=== PATIENT | female | born 1975 ===

== ENCOUNTER → 2018-07-13 | Outpatient (CLI) | payer OTHER ==
--- NOTE | 2018-07-13 17:12 | CONS ---
Assessment/Plan Assessment/Plan Hospital Course (Demo Recall) This is a 42-year-old female with 3-month history of right knee and lower leg pain. On history and examination her pain is most likely coming from a distal hamstring strain as well as a gastrocnemius strain. The knee joint line itself does not appear to be tender and is ligamentously stable. X-rays show no significant abnormality. Plan: Continue anti-inflammatories prescribed by PCP Physical therapy Weight loss Low impact activities Ice Consultation Date/Type/Reason Admit Date/Time Date of Consultation: Jul 13, 2018 Reason for Consultation Right knee/leg pain Date/Time of Note DATE: 07/13/18 TIME: 17:03 Hx of Present Illness This is a 42-year-old female presents to clinic today complaining of right knee and leg pain since April 2018. This occurred one morning when she was putting on her shoes and she felt pain and a pop near her ankle and pain rating up to her knee. Her knee then felt stiff and began hurting along the posterior portion. Her pain has somewhat gotten better but is persistent it prevents her from doing her job. It bothers her every day. It is very sensitive to touch. She states it has been swelling. She has pain 4/10 is described as sharp, dull, throbbing. She denies any numbness and tingling in the lower leg. She has been taking ibuprofen it does help somewhat. She has not had physical therapy. Massage in the knee helps. Denies previous injury to the knee. It is difficult for her to use stairs she uses the banister. Patient denies fever, chills, shortness of breath, chest pain, nausea/vomiting, constipation, diarrhea, numbness, and tingling. Past Medical History Meningitis Depression Reflux Headaches numbness and tingling in the hand Past Surgical History Past Surgical Hx: no surgical history Family History Significant Family History: no pertinent family hx Social History Alcohol Use: rarely Smoking Status: Never smoker Drug Use: none Exam/Review of Systems Exam Vitals Weight: 319 pounds Height: 5 foot 2 inches BMI: 58.3 Temperature: 98.4 Heart Rate: 91 Blood Pressure: 126/60 Respiratory Rate: 12 Exam General: Morbidly obese. Awake, alert, in no acute distress, pleasant and cooperative Heart: regular rhythm Lungs: breathing comfortably, no tachypnea or dyspnea MUSCULOSKELETAL: Right lower extremity: Skin intact. The knee has valgus alignment with no thrust. Range of motion 0- 90 degrees. There is exquisite tenderness to palpation along the soft tissue posterior to the knee along the distal hamstrings as well as the medial gastrocnemius. There is no ecchymosis. The knee is ligamentously stable to both varus and valgus stress throughout range of motion as well as anterior and posterior drawer. Her gait is antalgic. Sensation intact to light touch in a sural, saphenous, deep peroneal, superficial peroneal, medial and lateral plantar nerve distribution. Motor is i ntact, patient able to dorsiflex and plantarflex ankle and extend and flex great toe. Dorsalis Pedis pulse +2, Brisk capillary refill. Compartments are soft. Calves non-tender to palpation bilaterally. Imaging Imaging The patient received a standard set of films today that were personally reviewed. Imaging included a standing bilateral knee AP, PA flexion, merchant views and a dedicated lateral of the affected knee: There is neutral valgus alignment of the knee. There is no significant loss of joint space any compartment(s). There is minimal osteophyte formation in the lateral compartment. There is no subchondral sclerosis. There are no subchondral cysts. No fracture. No acute injury to knee. No significant abnormality. HARRISON CURIEL MD Jul 13, 2018 17:11
--- NOTE | 2018-07-18 22:32 | RADRPT ---
PROCEDURE: Bilateral knee radiographs. CLINICAL INDICATION: Bilateral knee pain. TECHNIQUE: 7 views. Bilateral frontal, oblique, and patellar view. Lateral view of the right knee . COMPARISON: No prior studies are available for comparison. FINDINGS: There is no fracture or dislocation. The soft tissues are normal. Articular surfaces are intact. There are degenerative changes of both knees with osteophytes arising from all 3 joint compartment margins and medial joint compartment narrowing bilaterally. There is no lytic or blastic lesion. There is no radiopaque foreign body. IMPRESSION: 1. Moderate degenerative changes of both knees. 2. Otherwise unremarkable images of the bilateral knees. RPTAT: QQ .Francis Machado MD, MD Date Time Electronically viewed and signed by .Francis Machado MD, MD on 07/18/2018 22:31 .R/
== END | disposition home or self-care (01) ==
LOC: HKI 15:37
PROVIDERS: ATTEND Orthopaedic Surgery Adult Reconstructive Orthopaedic Surgery
DX: M25.561 Pain in right knee (principal); K21.9 Gastro-esophageal reflux disease without esophagitis; F32.9 Major depressive disorder, single episode, unspecified; E66.01 Morbid (severe) obesity due to excess calories; Z86.61 Personal history of infections of the central nervous system
CPT/HCPCS: 73564; Z7500; G0463